=== PATIENT | female | born 1985 | race Caucasian/White ===

== ENCOUNTER 2016-05-28 13:20 | Emergency (ER) | payer OTHER ==
[2016-05-28 14:21] VITALS: BP 134/71
--- NOTE | 2016-05-28 15:08 | UC ---
FLU HPI - HPI Summary HPI Summary: DAUGHTER POSITIVE FOR INFLUENZA; ONE DAY OF HEADACHE, COUGH, FEVER SINCE THIS MORNING. - History of Current Complaint Chief Complaint: UCGeneralIllness Stated Complaint: CHEST CONGESTION Time Seen by Provider: 05/28/16 14:18 Hx Obtained From: Patient, Family/[employer] Supervisor Hx Last Menstrual Period: 04/22/15 Onset/Duration: Sudden Onset, Lasting Hours, Still Present Severity Currently: Severe Severity Initially: Moderate Associated Signs & Symptoms: Positive: F/C, Myalgia, Cough, Nasal Congestion Related Hx: Possible Flu/Infectious Exposure - Allergy/Home Medications Allergies/Adverse Reactions: Allergies Allergy/AdvReac Type Severity Reaction Status Date / Time Penicillins Allergy Mild Hives Verified 11/07/15 09:04 Latex Allergy REDNESS Verified 11/07/15 09:04 AND ITCHINESS Nickel Allergy SWELL, Verified 11/07/15 09:04 BLISTERS SEASONAL ALLERGIES Allergy Unknown Uncoded 11/07/15 09:04 Reaction Details PMH/Surg Hx/FS Hx/Imm Hx Previously Healthy: Yes Endocrine History Of: Reports: Diabetes - "PREDIABETIC"- DIET CONTROLLED Denies: Thyroid Disease Cardiovascular History Of: Denies: Cardiac Disorders, Hypertension, Pacemaker/ICD Respiratory History Of: Denies: COPD, Asthma GI/ History Of: Reports: Kidney Stones - 10/2015 left side, Renal Disease Denies: Ulcer Psychological History Of: Reports: Anxiety - PRN MEDICATION-USUALLY TAKES LORAZEPAMPRIOR TO PROCEDURES, Depression - ROUTINE MEDICATION - Surgical History Surgical History: Yes Surgery Procedure, Year, and Place: 3 [place] [facility] [place]TUBAL LIGATION- WITH LAST 6 YEARS AGO. 10/2015-LEFT STENT INSERTION - Family History Known Family History: Positive: Unknown Negative: Respiratory Disease - Social History Occupation: Employed Full-time Lives: With Family Alcohol Use: Occasionally Substance Use Type: None Smoking Status (MU): Heavy Every Day Tobacco Smoker Type: Cigarettes Amount Used/How Often: 1/2-1 PPD X 18 YEARS Have You Smoked in the Last Year: Yes Cessation Counseling: Patient Advised to Stop Review of Systems Constitutional: Fever, Chills Skin: Negative Eyes: Negative ENT: Sore Throat Respiratory: Cough Cardiovascular: Negative Gastrointestinal: Negative Genitourinary: Negative Motor: Negative Neurovascular: Negative Musculoskeletal: Myalgia Neurological: Negative Psychological: Negative All Other Systems Reviewed And Are Negative: Yes Physical Exam Triage Information Reviewed: Yes Appearance: No Pain Distress, Well-Nourished, Ill-Appearing Vital Signs: Initial Vital Signs Temp 100.0 F 05/28/16 14:14 Pulse 110 05/28/16 14:14 Resp 18 05/28/16 14:14 BP 134/71 05/28/16 14:14 Pulse Ox 96 05/28/16 14:14 Vital Signs Reviewed: Yes Eye Exam: Normal ENT Exam: Normal ENT: Positive: Normal ENT inspection, Hearing grossly normal, Pharynx normal, Pharyngeal erythema, TMs normal Dental Exam: Normal Neck exam: Normal Neck: Positive: Supple, Nontender, No Lymphadenopathy Respiratory Exam: Normal Respiratory: Positive: Chest non-tender, Lungs clear, Normal breath sounds, No respiratory distress, No accessory muscle use Cardiovascular Exam: Normal Cardiovascular: Positive: RRR, No Murmur, Pulses Normal Abdominal Exam: Normal Abdomen Description: Positive: Nontender, No Organomegaly Musculoskeletal Exam: Normal Musculoskeletal: Positive: Strength Intact, ROM Intact Neurological Exam: Normal Psychological Exam: Normal Psychological: Positive: Normal Response To Family Skin Exam: Normal Flu Course/Dx - Differential Dx/Diagnosis Differential Diagnosis/HQI/PQRI: Influenza, Upper Respiratory Infection Provider Diagnoses: INFLUENZA Discharge - Discharge Plan Condition: Stable Disposition: HOME Prescriptions: Oseltamivir CAP* [Tamiflu CAP*] 75 mg PO BID #10 cap Patient Education Materials: Influenza (ED) Forms: *Work Release Referrals: Madan Maier MD [Primary Care Provider] -
== END 2016-05-28 15:14 | disposition home or self-care (01) ==
LOC: UCEAST 13:20
DX: J11.1 Influenza due to unidentified influenza virus with other respiratory manifestations (principal); Z88.0 Allergy status to penicillin; F17.210 Nicotine dependence, cigarettes, uncomplicated
CPT/HCPCS: 99212; G0463

== ENCOUNTER 2017-09-15 08:47 | Emergency (ER) | payer OTHER ==
[2017-09-15 09:00] VITALS: BP 106/78
[2017-09-15] MEDS ORDERED: Clindamycin CAP* 150 MG PO ONE (09:36)
--- NOTE | 2017-09-15 13:08 | UC ---
Dental HPI - HPI Summary HPI Summary: c/o facial pain for several days, she has history of severe dental caries and sepsis but she states she is very anxious with dental procedures. She continues to smoke. Patient states she is going to the dentist this coming week but pain on left side of her face has become more intense in the past 48 hr. Denies fever or chills. Denies radiation of pain to neck or ear, denies discharge from gums - History of Current Complaint Chief Complaint: UCDentalProblem Stated Complaint: FACIAL SWELLING Time Seen by Provider: 09/15/17 09:26 Hx Obtained From: Patient Hx Last Menstrual Period: 09/02/17 ?: Yes Onset/Duration: Gradual Onset, Lasting Days Severity: Moderate Pain Intensity: 7 Pain Scale Used: 0-10 Numeric Aggravating Factor(s): Nothing Alleviating Factor(s): Nothing - Allergies/Home Medications Allergies/Adverse Reactions: Allergies Allergy/AdvReac Type Severity Reaction Status Date / Time Latex, Natural Rubber Allergy Itching Verified 09/15/17 08:54 nickel Allergy Swelling Verified 09/15/17 08:54 Penicillins Allergy Hives Verified 09/15/17 08:54 SEASONAL ALLERGIES Allergy Unknown Uncoded 11/07/15 09:04 Reaction Details Home Medications: Home Medications Divalproex DR TAB(*) [Depakote DR TAB(*)] 75 mg PO DAILY 09/15/17 [History Confirmed 09/15/17] PMH/Surg Hx/FS Hx/Imm Hx Psychological History: Depression, Bipolar Disorder - Surgical History Surgical History: Yes Surgery Procedure, Year, and Place[place] [facility] [place] WITH LAST 6 YEARS AGO. 10/2015-LEFT STENT INSERTION - Family History Known Family History: Positive: Unknown Negative: Respiratory Disease - Social History Alcohol Use: Occasionally Substance Use Type: None Smoking Status (MU): Heavy Every Day Tobacco Smoker Type: Cigarettes Amount Used/How Often: 1/2-1 PPD X 18 YEARS Have You Smoked in the Last Year: Yes Review of Systems Constitutional: Negative ENT: Dental Pain, Sinus Pain/Tenderness All Other Systems Reviewed And Are Negative: Yes Physical Exam Triage Information Reviewed: Yes Appearance: No Pain Distress, Well-Nourished, Ill-Appearing Vital Signs: Initial Vital Signs Temp 98.2 F 09/15/17 08:53 Pulse 88 09/15/17 08:53 Resp 14 09/15/17 08:53 BP 106/78 09/15/17 08:53 Pulse Ox 99 09/15/17 08:53 Vital Signs Reviewed: Yes Eyes: Positive: Conjunctiva Clear ENT: Positive: Hearing grossly normal, Pharynx normal, TMs normal, Uvula midline , Other - tender on palpation of left maxillary sinus, no mass in oral cavity could be palpable, diffuse dental sepsis and loss of teeth. Neck: Positive: Supple, Nontender, No Lymphadenopathy Respiratory: Positive: Chest non-tender, Lungs clear, Normal breath sounds, No respiratory distress Cardiovascular: Positive: RRR, No Murmur, Pulses Normal, Brisk Capillary Refill Dental Complaint Course/Dx - Course Course Of Treatment: dental sepsis possible involment of left maxillary sinus, urgent follow up with dental clinic, start clindamycin 300mg po tid for 7 days, f/u with PCP - Differential Dx/Diagnosis Provider Diagnoses: dental sepsis Discharge - Sign-Out/Discharge Documenting (check all that apply): Discharge/Admit/Transfer - Discharge Plan Condition: Stable Disposition: HOME Prescriptions: Clindamycin HCl 300 mg PO TID 7 Days #21 capsule Patient Education Materials: Clindamycin (By mouth), How to Stop Smoking (ED), Dental Abscess (ED) Referrals: Juan Meza MD [Primary Care Provider] - - Billing Disposition and Condition Condition: STABLE Disposition: Home
== END 2017-09-15 09:44 | disposition home or self-care (01) ==
LOC: UCCORT 08:47
DX: A41.9 Sepsis, unspecified organism (principal); K08.9 Disorder of teeth and supporting structures, unspecified; Z88.0 Allergy status to penicillin; Z91.040 Latex allergy status; F32.9 Major depressive disorder, single episode, unspecified; F17.210 Nicotine dependence, cigarettes, uncomplicated
CPT/HCPCS: 99212; A9270-GY; G0463

== ENCOUNTER 2018-04-17 13:59 | Emergency (ER) | payer MEDICAID, OTHER ==
[2018-04-17 14:26] VITALS: BP 133/77
--- NOTE | 2018-04-17 14:43 | ED ---
Lower Extremity - HPI Summary HPI Summary: 33 yr old with the complaint of right foot pain. Onset of pain past day with initially noticed a bump on the bottom of right foot over the 1st MP area, and then bruising today. Has pain worse with standing. Pain is moderate. No redness, fever or chills. NO other complaints. - History of Current Complaint Chief Complaint: UCLowerExtremity Stated Complaint: RT FOOT INJURY Time Seen by Provider: 04/17/18 14:29 Hx Last Menstrual Period: 09/02/17 Pain Intensity: 0 - Allergies/Home Medications Allergies/Adverse Reactions: Allergies Allergy/AdvReac Type Severity Reaction Status Date / Time Latex, Natural Rubber Allergy Itching Verified 09/15/17 08:54 nickel Allergy Swelling Verified 09/15/17 08:54 Penicillins Allergy Hives Verified 09/15/17 08:54 SEASONAL ALLERGIES Allergy Unknown Uncoded 11/07/15 09:04 Reaction Details Home Medications: Home Medications LORazepam [Ativan 0.5 MG TAB] 0.5 mg PO Q4H PRN 04/17/18 [History Confirmed 01/24] PMH/Surg Hx/FS Hx/Imm Hx Endocrine/Hematology History: Reports: Hx Diabetes - DIET CONTROLLED Denies: Hx Thyroid Disease Cardiovascular History: Denies: Hx Hypertension, Hx Pacemaker/ICD Respiratory History: Denies: Hx Asthma, Hx Chronic Obstructive Pulmonary Disease (COPD) GI History: Reports: Hx Gastroesophageal Reflux Disease - HISTORY Denies: Hx Ulcer History: Reports: Hx Kidney Stones - 10/2015 left side, Hx Renal Disease Musculoskeletal History: Reports: Other Musculoskeletal History - SCIATICA ON OCCASION AFECTING THE RIGHT LEG Sensory History: Reports: Hx Contacts or Glasses - GLASSES Denies: Hx Hearing Aid Opthamlomology History: Reports: Hx Contacts or Glasses - GLASSES Psychiatric History: Reports: Hx Anxiety - PRN MEDICATION-USUALLY TAKES LORAZEPAMPRIOR TO PROCEDURES, Hx Depression - ROUTINE MEDICATION, Hx Panic Disorder - Surgical History Surgery Procedure, Year, and Place: 3 C [place] [facility] [place]TUBAL LIGATION- WITH LAST 6 YEARS AGO. 10/2015-LEFT STENT INSERTION Hx Anesthesia Reactions: No Infectious Disease History: No Infectious Disease History: Denies: Hx Hepatitis, Hx Human Immunodeficiency Virus (HIV), Traveled Outside the [place] in Last 30 Days - Family History Known Family History: Positive: Unknown Negative: Respiratory Disease - Social History Alcohol Use: Occasionally Substance Use Type: Reports: None Smoking Status (MU): Heavy Every Day Tobacco Smoker Type: Cigarettes Amount Used/How Often: 1/2-1 PPD X 18 YEARS Have You Smoked in the Last Year: Yes Review of Systems Constitutional: Negative Positive: Other - right foot pain All Other Systems Reviewed And Are Negative: Yes Physical Exam Triage Information Reviewed: Yes Vital Signs On Initial Exam: Initial Vitals Temp Pulse Resp BP Pulse Ox 97.8 F 102 16 133/77 99 04/17/18 14:23 04/17/18 14:23 04/17/18 14:23 04/17/18 14:23 04/17/18 14:23 Vital Signs Reviewed: Yes Appearance: Positive: Well-Appearing, No Pain Distress Head/Face: Positive: Normal Head/Face Inspection Eyes: Positive: EOMI ENT: Positive: Normal ENT inspection Neck: Positive: Nontender Respiratory/Lung Sounds: Positive: Clear to Auscultation, Breath Sounds Present Cardiovascular: Positive: Pulses are Symmetrical in both Upper and Lower Extremities Musculoskeletal: Positive: Other - mild bruise over the right 1st MP area with mild STS. No erythema. Neurological: Positive: Sensory/Motor Intact, Alert, Oriented to Person Place, Time, CN Intact II-III Psychiatric: Positive: Normal Diagnostics - Vital Signs Vital Signs Temp Pulse Resp BP Pulse Ox 04/17/18 14:23 97.8 F 102 16 133/77 99 - Laboratory Lab Statement: Any lab studies that have been ordered have been reviewed, and results considered in the medical decision making process. - Radiology right foot Radiology Interpretation Completed By: Radiologist - nad per rad reading Lower Extremity Course/Dx - Course Course Of Treatment: 33 yr old with contusion, sprain of right foot. DChome FU with PMD. Post op shoe and crutches. - Diagnoses Provider Diagnoses: Sprain of foot, right, Contusion of foot, right Discharge - Sign-Out/Discharge Documenting (check all that apply): Patient Departure All imaging exams completed and their final reports reviewed: Yes - Discharge Plan Condition: Good Disposition: HOME Prescriptions: Ibuprofen TAB* [Motrin TAB* 600 MG] 600 mg PO Q8H PRN #20 tab PRN Reason: Pain Patient Education Materials: Foot Contusion (ED), Foot Sprain (ED), Hypertension (ED) Referrals: Juan Meza MD [Primary Care Provider] - 2 Days - Billing Disposition and Condition Condition: GOOD Disposition: Home
== END 2018-04-17 15:22 | disposition home or self-care (01) ==
LOC: UCCORT 13:59
DX: S93.601A Unspecified sprain of right foot, initial encounter (principal); S90.31XA Contusion of right foot, initial encounter; X58.XXXA Exposure to other specified factors, initial encounter; Y92.9 Unspecified place or not applicable; Z88.0 Allergy status to penicillin; E11.9 Type 2 diabetes mellitus without complications; F41.8 Other specified anxiety disorders; F17.210 Nicotine dependence, cigarettes, uncomplicated
CPT/HCPCS: 99213; G0463

== ENCOUNTER 2018-11-23 10:58 | Emergency (ER) | payer MEDICAID, OTHER ==
[2018-11-23 11:39] VITALS: BP 143/93
--- NOTE | 2018-11-23 11:51 | UC ---
"Dental HPI - HPI Summary HPI Summary: 33 year old female presents with complaint of left lower teeth pain, worse last night. Had difficulty sleeping due to pain. Has dental caries, no swelling of jaw, denies fever nor chills. - History of Current Complaint Chief Complaint: UCDentalProblem Stated Complaint: TOOTH PAIN Time Seen by Provider: 11/23/18 11:44 Hx Obtained From: Patient Hx Last Menstrual Period: 11/09/18 Onset/Duration: Sudden Onset, Lasting Hours - over the past 12 hours. Severity: Severe Pain Intensity: 0 Aggravating Factor(s): Chewing Alleviating Factor(s): Nothing - Allergies/Home Medications Allergies/Adverse Reactions: Allergies Allergy/AdvReac Type Severity Reaction Status Date / Time Latex, Natural Rubber Allergy Itching Verified 11/23/18 11:34 nickel Allergy Swelling Verified 11/23/18 11:34 Penicillins Allergy Hives Verified 11/23/18 11:34 SEASONAL ALLERGIES Allergy Unknown Uncoded 11/23/18 11:34 Reaction Details PMH/Surg Hx/FS Hx/Imm Hx Previously Healthy: Yes Psychological History: Anxiety - treated by PCP., Depression - Surgical History Surgical History: Yes Surgery Procedure, Year, and Place[place] [facility] [place]- WITH LAST 6 YEARS AGO. 10/2015-LEFT STENT INSERTION - Family History Known Family History: Positive: Unknown Negative: Respiratory Disease - Social History Alcohol Use: Occasionally Substance Use Type: None Smoking Status (MU): Heavy Every Day Tobacco Smoker Type: Cigarettes Amount Used/How Often: 1/2-1 PPD X 18 YEARS Have You Smoked in the Last Year: Yes Review of Systems All Other Systems Reviewed And Are Negative: Yes Constitutional: Negative: Fever, Chills Skin: Negative: Rash, Bruising Eyes: Negative: Blurred Vision, Diplopia, Eye Redness ENT: Positive: Dental Pain - left lower jaw.. Negative: Epistaxis, Sore Throat , Nasal Discharge Respiratory: Negative: Shortness Of Breath, Cough Cardiovascular: Negative: Palpitations, Chest Pain Gastrointestinal: Negative: Abdominal Pain, Vomiting, Diarrhea, Nausea Genitourinary: Negative: Dysuria Motor: Negative: Decreased ROM, Weakness Musculoskeletal: Negative: Arthralgia Neurological: Negative: Headache, Weakness, Paresthesia Psychological: Positive: Anxious. Negative: Depressed Is Patient Immunocompromised?: No Physical Exam Triage Information Reviewed: Yes Appearance: Pain Distress Vital Signs: Initial Vital Signs Temp 97.6 F 11/23/18 11:35 Pulse 88 11/23/18 11:35 Resp 16 11/23/18 11:35 BP 143/93 11/23/18 11:35 Pulse Ox 98 11/23/18 11:35 Vital Signs Reviewed: Yes Eyes: Positive: Conjunctiva Clear ENT: Positive: Pharynx normal, TMs normal. Negative: Dental tenderness - left lower jaw. Dental: Positive: Percussion Tenderness @ - left lower teeth, Gross Decay/ Caries @ - left lower teeth. Negative: Cervical Lymphadenopathy Neck: Positive: Supple, Nontender Respiratory: Positive: Lungs clear, Normal breath sounds Cardiovascular: Positive: RRR, No Murmur Abdomen Description: Positive: Nontender, Soft Musculoskeletal: Positive: Strength Intact, ROM Intact Neurological: Positive: Alert Skin: Negative: Rashes Dental Complaint Course/Dx - Course Course Of Treatment: Antibiotic and pain control. Confidential Drug Utilization Report Search Terms: Marcelina Fernandez, 1985 Search Date: 11/23/2018 11:52:43 AM The Drug Utilization Report below displays all of the controlled substance prescriptions, if any, that your patient has filled in the last twelve months. The information displayed on this report is compiled from pharmacy submissions to the Department, and accurately reflects the information as submitted by the pharmacies. This report was requested by: Guillermo Amato | Reference #: [id number] Others' Prescriptions Patient Name: Marcelina Fernandez Date: 1985 Address: [address] [place] [address] Sex: Female Rx Written Rx Dispensed Drug Quantity Days Supply Prescriber Name 10/14/2018 10/15/2018 lorazepam 1 mg tablet 90 30 Juan Meza MD - Differential Dx/Diagnosis Differential Diagnosis/Dx: Dental Abscess, Odontogenic Pain Provider Diagnosis: Dental caries Discharge - Sign-Out/Discharge Documenting (check all that apply): Patient Departure All imaging exams completed and their final reports reviewed: Yes - Discharge Plan Condition: Stable Disposition: HOME Prescriptions: Clindamycin HCl 600 mg PO TID 10 Days #60 capsule Hydrocodone/Acetaminophen [Hydrocodone-Acetamin 5-325 mg] 1 tab PO Q6HR PRN #12 tablet MDD 4 TABS PRN Reason: Pain - Severe Patient Education Materials: Dental Abscess (ED) Referrals: Juan Meza MD [Primary Care Provider] - Additional Instructions: Take medications as prescribed. Do not take Hydrocodone/APAP withing 6 hours of taking lorazepam. May also take ibuprofen 600-800mg up to three times/day for pain. Salt water garggles as needed. - Billing Disposition and Condition Condition: STABLE Disposition: Home"
== END 2018-11-23 12:12 | disposition home or self-care (01) ==
LOC: UCCORT 10:58
DX: K02.9 Dental caries, unspecified (principal); Z88.0 Allergy status to penicillin; F17.210 Nicotine dependence, cigarettes, uncomplicated
CPT/HCPCS: 99212; G0463